=== PATIENT | female | born 1970 | race Caucasian/White ===

== ENCOUNTER → 2020-05-03 12:39 | Outpatient (BNVA) | payer OTHER, SELFPAY | PROVIDERS: Family Provider Family Medicine; PCP Family Medicine; Referring Provider Family Medicine; Visit Provider Dermatology | DX: L72.0 Epidermal cyst (principal); D48.9 Neoplasm of uncertain behavior, unspecified | CPT/HCPCS: 11102; 11103; 88304; 88305; 99203 ==

== ENCOUNTER 2020-11-22 13:47 | Outpatient (CLI) | payer OTHER, SELFPAY ==
--- NOTE | 2020-11-22 13:53 | XR_ITS ---
WS: [id number] Bone mineral density performed on a [employer], 11/22/2020 Clinical data: POSTMENOPAUSAL OSTEOPOROSIS Findings: The first 4 lumbar vertebral bodies demonstrated the bone mineral density of 1.063 g/cm2 for a young adult T score of -1.0. Measurement of the left hip reveals a bone mineral density of 0.811 g/cm2 with a young adult T score of -1.6. Measurement of the right hip reveals the bone mineral density of 0.829 g/cm2 for young adult T score of -1.4. XR/XR DEXA axial skeleton* [id number] Impression: 1. Normal bone mineral density of the lumbar vertebral bodies. 2. Osteopenia of both hips.
== END 2020-11-22 13:48 | disposition home or self-care (01) ==
PROVIDERS: PCP Family Medicine; Visit Provider Family Medicine
DX: Z78.0 Asymptomatic menopausal state (principal); M81.0 Age-related osteoporosis without current pathological fracture; M85.89 Other specified disorders of bone density and structure, multiple sites
CPT/HCPCS: 77080

== ENCOUNTER → 2025-08-02 08:21 | Outpatient (BNVA) | payer BC, SELFPAY | PROVIDERS: PCP Family Medicine; Visit Provider Student in an Organized Health Care Education/Training Program | DX: S73.192A Other sprain of left hip, initial encounter (principal); W19.XXXA Unspecified fall, initial encounter; M25.551 Pain in right hip; M25.552 Pain in left hip | CPT/HCPCS: 73523 ==